=== PATIENT | female | born 1970 | race Caucasian/White ===

== ENCOUNTER → 2017-02-14 | Outpatient (CLI) | payer OTHER ==
--- NOTE | 2017-02-14 12:09 | XR ---
EXAMINATION TYPE: XR nasal bone DATE OF EXAM: 02/14/2017 COMPARISON: NONE HISTORY: Pain TECHNIQUE: 3 views submitted FINDINGS: Maxillary styloid intact. Nasal bridge intact. There is a lucency involving the ethmoidal p late. IMPRESSION: Findings suspicious for a linear fracture through the ethmoidal plate with no significant displacement.
== END ==
LOC: RADXRMAIN 11:18
PROVIDERS: ATTEND Family Medicine
DX: S02.2XXA Fracture of nasal bones, initial encounter for closed fracture (principal)
CPT/HCPCS: 70160

== ENCOUNTER → 2021-01-23 | Outpatient (CLI) | payer OTHER ==
--- NOTE | 2021-01-25 11:41 | MM ---
Reason for exam: screening (asymptomatic). Last mammogram was performed 12 years and 5 months ago. History: Family history of breast cancer in mother at age 60. Took hormonal contraceptives for 4 years beginning at age 17. Physical Findings: A clinical breast exam by your physician is recommended on an annual basis and results should be correlated with mammographic findings. MG Screening Mammo w CAD Bilateral CC and MLO view(s) were taken. No prior studies available for comparison. The breast tissue is heterogeneously dense. This may lower the sensitivity of mammography. There is no discrete abnormality. ASSESSMENT: Benign, BI-RAD 2 RECOMMENDATION: Routine screening mammogram of both breasts in 1 year.
== END | disposition home or self-care (01) ==
LOC: RADMAMWWP 15:59
PROVIDERS: ATTEND Family Medicine
DX: Z12.31 Encounter for screening mammogram for malignant neoplasm of breast (principal); Z80.3 Family history of malignant neoplasm of breast
CPT/HCPCS: 77067

== ENCOUNTER 2021-02-11 16:08 | Emergency (ER) | payer OTHER ==
[2021-02-11 16:33] VITALS: RESP 18; TEMP 97.9
[2021-02-11] MEDS ORDERED: KETOROLAC 15 MG/ML 1 ML VIAL IM STA (16:49)
--- NOTE | 2021-02-11 17:17 | XR ---
EXAMINATION TYPE: XR foot complete RT DATE OF EXAM: 02/11/2021 COMPARISON: NONE HISTORY: Foot pain TECHNIQUE: 3 views FINDINGS: There is plantar calcaneal spurring. Metatarsals are intact. Toes appear intact. I see no e vidence of a fracture. IMPRESSION: Calcaneal spurring. No fracture.
--- NOTE | 2021-02-11 17:28 | ED ---
General Adult HPI - General Chief complaint: Extremity Injury, Lower Stated complaint: Foot injury Time Seen by Provider: 02/11/21 16:34 Source: patient, RN notes reviewed Mode of arrival: ambulatory Limitations: no limitations - History of Present Illness Initial comments: 50-year-old female with a past medical history of hyperlipidemia, hypertension p resents to the emergency room for a chief complaint of left foot pain. Patient reports she has had left foot pain for 2 weeks now. 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 Patient reports that for the past 2 weeks she has had pain in the heel as well as the lateral aspect of the left foot. Patient denies any injuries. Patient denies any fevers. Patient states it is sometimes painful to stand on. She does have an appointment with a administrative technician in 3 days.Patient has no other complaints at this time including shortness of breath, chest pain, abdominal pain, nausea or vomiting, headache, or visual changes. - Related Data Allergies Allergy/AdvReac Type Severity Reaction Status Date / Time No Known Allergies Allergy Verified 02/11/21 16:28 Review of Systems ROS Statement: Those systems with pertinent positive or pertinent negative responses have been documented in the HPI. ROS Other: All systems not noted in ROS Statement are negative. Past Medical History Past Medical History: Hyperlipidemia, Hypertension History of Any Multi-Drug Resistant Organisms: None Reported Past Surgical History: Section, Cholecystectomy, Orthopedic Surgery Past Psychological History: No Psychological Hx Reported Smoking Status: Never smoker Past Alcohol Use History: None Reported Past Drug Use History: None Reported General Exam Limitations: no limitations General appearance: alert, in no apparent distress Head exam: Present: atraumatic Eye exam: Present: normal appearance, PERRL, EOMI. Absent: scleral icterus, con junctival injection ENT exam: Present: normal exam, mucous membranes moist Neck exam: Present: normal inspection, full ROM. Absent: tenderness Respiratory exam: Present: normal lung sounds bilaterally. Absent: respiratory distress, wheezes Cardiovascular Exam: Present: regular rate, normal rhythm, normal heart sounds Extremities exam: Present: full ROM (Full range of motion of the left foot.), tenderness (mild tenderness to the plantar aspect of the left foot including the heel and lateral aspect.), normal capillary refill (Capillary refill less than 2 seconds left lower extremity, DP pulse 2+), other (sensation intact before extremity.) Neurological exam: Present: alert Course Vital Signs 02/11/21 16:29 Temperature 97.9 F Pulse Rate 73 Respiratory 18 Rate Blood Pressure 142/85 O2 Sat by Pulse 97 Oximetry Medical Decision Making - Medical Decision Making HPI physical exam as documented. No edema or erythema noted to the left foot. DP pulse 2+. X-ray is negative. Symptoms are Somewhat consistent with plantar fasciitis. At this time we will treat conservatively with NSAIDs, massaging, and icing. She will follow up with podiatry and orthopedics. She will return here for any worsening symptoms. Disposition Clinical Impression: Foot pain, left Disposition: HOME SELF-CARE Condition: Good Instructions (If sedation given, give patient instructions): Plantar Fasciitis (ED), Foot Sprain (ED) Additional Instructions: Please take Motrin and Tylenol for pain. Try to ice the area and do gentle massaging with either a water bottle or tenderness. Follow-up with administrative technician or orthopedics. Return to the emergency room for any worsening symptoms. Is patient prescribed a controlled substance at d/c from ED?: No Referrals: Luis Bowden DO [Primary Care Provider] - 1-2 days Ashu Carnes MD [STAFF PHYSICIAN] - 1-2 days Time of Disposition: 17:25
[2021-02-11] MEDS ORDERED: ACET/COD 300 MG/30 MG STARTER PACK 6 TAB BTL PO STA (17:41)
[2021-02-11 17:49] VITALS: BP 129/84; PULSE 66
== END 2021-02-11 17:48 | disposition home or self-care (01) ==
LOC: EC 16:08
DX: M79.672 Pain in left foot (principal); I10 Essential (primary) hypertension; E78.5 Hyperlipidemia, unspecified; Z90.49 Acquired absence of other specified parts of digestive tract
CPT/HCPCS: 73630; 99283; 96372; J1885

== ENCOUNTER → 2023-04-16 | Outpatient (CLI) | payer OTHER ==
--- NOTE | 2023-04-22 19:10 | MM ---
Reason for Exam: Screening (asymptomatic). Last mammogram was performed 2 year(s) and 3 month(s) ago. Patient History: Menarche at age 13. First Full-Term at age 24. Patient has history of breast feeding. Hormonal Contraceptives for 4 years from age 17 until age 21. Mother had breast cancer, age 60. Risk Values: Fannie 5 year model risk: 2.0%. NCI Lifetime model risk: 15.9%. Prior Study Comparison: 08/10/2008 Bilateral Screening Mammogram, [facility]. 01/23/2021 Bilateral Screening Mammogram, [facility]. Tissue Density: There are scattered fibroglandular densities. Findings: Analyzed By CAD. Upper outer quadrant focal asymmetry in the right breast is more defined. This may represent superimposition shadow but further evaluation is recommended. No other significant change. Overall Assessment: Incomplete: need additional imaging evaluation, BI-RAD 0 Management: Special View Mammogram of the right breast. Diagnostic Breast Ultrasound of the right breast. Additional views to include spot 3-D CC, spot 3-D MLO, and 3-D ML views. Targeted right breast ultrasound of any persisting abnormality. Electronically signed and approved by: Eitan Spain M.D. Radiologist
== END | disposition home or self-care (01) ==
LOC: RADMAMWWP 14:50
PROVIDERS: ATTEND Family Medicine
DX: Z12.31 Encounter for screening mammogram for malignant neoplasm of breast (principal); Z80.3 Family history of malignant neoplasm of breast
CPT/HCPCS: 77067

== ENCOUNTER → 2023-05-01 | Outpatient (CLI) | payer OTHER ==
--- NOTE | 2023-05-01 13:47 | MM ---
Reason for Exam: Additional evaluation requested from abnormal screening. Last screening mammogram was performed less than 1 month ago. Patient History: Menarche at age 13. First Full-Term at age 24. Patient has history of breast feeding. Hormonal Contraceptives for 4 years from age 17 until age 21. Mother had breast cancer, age 60. Last menstrual period: 04/06/2023 Risk Values: Fannie 5 year model risk: 2.0%. NCI Lifetime model risk: 15.9%. Tissue Density: Right: There are scattered fibroglandular densities. Findings: Analyzed By CAD. Abdomen appears stable. Under compression medial lateral view a persistent suspicious density within the left mid breast is not evident. No suspicious groups of microcalcifications, spiculated or lobular masses, architectural distortion or other secondary signs of malignancy are mammographically apparent.Pattern appears stable. Under compression and medial lateral view a persistent suspicious density within the left mid breast is not evident. No suspicious groups of microcalcifications, spiculated or lobular masses, architectural distortion or other secondary signs of malignancy are mammographically apparent. Overall Assessment: Benign, BI-RAD 2 Management: Screening Mammogram of both breasts in 1 year. A negative mammogram report should not preclude additional follow up of suspicious palpable abnormalities. Patient should continue monthly self breast exam. A clinical breast exam by your physician is recommended on an annual basis and results should be correlated with mammographic findings. Electronically signed and approved by: Malick Jarrell D.O. Radiologis
== END | disposition home or self-care (01) ==
LOC: RADMAMWWP 13:15
PROVIDERS: ATTEND Family Medicine
DX: R92.321 Mammographic fibroglandular density, right breast (principal); Z80.3 Family history of malignant neoplasm of breast
CPT/HCPCS: 77065; G0279; 77061

== ENCOUNTER → 2023-12-11 | Outpatient (CLI) | payer OTHER | END | disposition home or self-care (01) | LOC: LABPRL 10:00 | PROVIDERS: ATTEND Nurse Practitioner Family | DX: Z00.00 Encounter for general adult medical examination without abnormal findings (principal); E78.5 Hyperlipidemia, unspecified; R53.83 Other fatigue | CPT/HCPCS: 80061; 83036 ==